=== PATIENT | male | born 1975 | race Caucasian/White ===

== ENCOUNTER 2020-10-13 08:44 | Outpatient (REF) | payer BC, SELFPAY | END 2020-10-13 08:45 | disposition home or self-care (01) | LOC: HO.HMGCLDS 08:44 | PROVIDERS: PCP Internal Medicine; Visit Provider Internal Medicine | DX: Z20.828 Contact with and (suspected) exposure to other viral communicable diseases (principal) | CPT/HCPCS: C9803; U0003 ==

== ENCOUNTER 2021-03-03 15:08 | Outpatient (REF) | payer BC, SELFPAY ==
--- NOTE | ~2021-03-03 | XR_ITS ---
EXAMINATION: XR HIP, LEFT CLINICAL INFORMATION: Pain COMPARISON: None TECHNIQUE: Two views of the left hip. FINDINGS: Bone alignment is normal. No fracture, dislocation or bone lesion is seen. The joint spaces are normal. There are surgical clips that project over the pelvis. Soft tissues are otherwise normal. XR/XR hip LT min 2V IMPRESSION: Normal left hip.
== END 2021-03-03 15:09 | disposition home or self-care (01) ==
LOC: HO.HMGCX 15:08
PROVIDERS: PCP Internal Medicine; Visit Provider Internal Medicine
DX: M25.552 Pain in left hip (principal)
CPT/HCPCS: 73502

== ENCOUNTER 2025-02-03 13:09 | Outpatient (AMB) | payer OTHER, SELFPAY ==
--- NOTE | 2025-02-03 13:13 | A.OFFPC_ITS ---
Vital Signs 02/03/25 13:14 Height 5 ft 8 in Weight 209 lb BMI 31.8 BP 160/92 H Blood Pressure Location Rt brachial Pulse 103 H Pulse Source Pulse Oximeter Temp 98.4 F Pulse Oximetry (%) 98 Intake Visit Reasons: follow up Intake Note: pain in left arm for about a year Allergies No Known Allergies Allergy (Verified 02/03/25 13:28) Medication List - Last Reconciled 02/03/25 by Aaliyah Soriano PA-C pantoprazole 40 mg PO DAILY Dental Screening Did you have a dental visit in the last 12 months?: Yes Did you have a dental problem in the last 6 months where you did not have access to dental care?: No Was dental information given to patient?: Yes FORMERLY [facility] Medical History (Updated 02/03/25 @ 13:46 by Aaliyah Soriano PA-C) Former smoker Alcohol dependency Class 1 obesity with body mass index (BMI) of 31.0 to 31.9 in adult Colon cancer screening Left shoulder pain Left elbow pain Hypertension Chronic low back pain Herniated lumbar disc without myelopathy Environmental allergies GERD (gastroesophageal reflux disease) Surgical History History of lumbosacral spine surgery Social History Housing: House Housing Other:: With Patient Tobacco Use Status: Former Tobacco user Tobacco use type: Cigarette Cigarette Packs Per Day: 0.5 Years Smoked: 20+ e-Cigarette/Vaping Use: Never Used Second Hand Smoke Exposure: Yes service: No Current occupational status: employed 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 1. Little interest or pleasure in doing things: not at all 2. Feeling down, depressed, or hopeless: not at all 3. Trouble falling or staying asleep, or sleeping too much: nearly every day 4. Feeling tired or having little energy: not at all 5. Poor appetite or overeating: several days 6. Feeling bad about yourself - or that you are a failure or have let yourself or your family down: not at all 7. Trouble concentrating on things, such as reading the newspaper or watching television: not at all 8. Moving or speaking so slowly that other people could have noticed. Or the opposite - being so fidgety or restless that you have been moving around a lot more than usual: not at all 9. Thoughts that you would be better off or of hurting yourself in some way: not at all Total score: 4 Depression Screening Interpretation: Negative Depression Screening Done: Yes 22666 - PHQ-9 Billing: Yes Source: Developed by Drs. Flaco Lang, Aleja Vivas, Farooq Edwards and colleagues, with an educational francisco from [employer]. Thrive Questionnaire Date Thrive assessed: 02/03/25 I am a: Patient What is your living situation today?: I have a steady place to live Within the past 12 months, did the food you bought not last and you didn't have the money to get more?: Never true Within the past 12 months, did you worry whether your food would run out before you got money to buy more?: Never true Do you have trouble paying for medicines?: No Do you have trouble getting transportation to medical appointments?: No Do you have trouble paying your heating and electricity bill?: No Do you have trouble taking care of your child, family member or friend?: No Do you have trouble with day-to-day activities such as bathing, preparing meals, shopping, managing finances, etc.?: No Are you currently unemployed and looking for a job?: No Are you interested in more education?: Yes THRIVE Score: 0 AUDIT C Alcohol Use Questionnaire (AUDIT-C) 1. How often do you have a drink containing alcohol?: 4 or more times a week 2. How many drinks containing alcohol do you have on a typical day when you are drinking?: 3 or 4 3. How often do you have six or more drinks on one occasion?: Monthly Total Score: 7 Score Reviewed/Action Taken: Yes (Reviewed pt not interested in stopping drinking at this time ) BELLE-7 AMB Questionnaire BELLE-7 Date BELLE - 7 assessed: 02/03/25 Feeling nervous, anxious, or on edge: 0 = Not at all Not being able to stop or control worryin = Not at all Worrying too much about different things: 0 = Not at all Trouble relaxin = Not at all Being so restless that it is hard to sit still: 0 = Not at all Becoming easily annoyed or irritable: 1 = Several days Feeling afraid as if something awful might happen: 0 = Not at all Total BELLE-7 score (0-4 normal; 5-9 mild; 10-14 moderate; 15-21 severe): 1 Source: Developed by Drs. Flaco Lang, Aleja Vivas, Farooq Edwards and colleagues, with an educational francisco from [employer]. BELLE-7 Assessment Billing BELLE-7 Assessment Tool: BELLE-7 Assessment 73911 Physical exam (Primary Care) Vital Signs: Last Vital Signs Temp 98.4 F 02/03/25 13:14 Pulse 103 H 02/03/25 13:14 BP 160/92 H 02/03/25 13:14 Pulse Ox 98 02/03/25 13:14 Care Plan Goal for BP management: <130/80 patient will be started on lisinopril 10 mg daily with instructions return in 1 month to assess affect BMI result Body Mass Index 31.8 BMI Assessment/Plan discussion: High BMI High, discussed plan: lifestyle, weight reduction, dietary, physical activity, alcohol moderation and other Tobacco/Smoking Status: Tobacco use Status Patient Tobacco Use Status Former Tobacco user 02/03/25 13:33 Tobacco use type Cigarette 02/03/25 13:33 e-Cigarette/Vaping Use Never Used 02/03/25 13:33 PHQ-9: PHQ-9 Score PHQ-9: Total score 4 02/03/25 13:33 Depression Screening Interpretation: Negative Thrive Assessment: Date of Thrive Assessment Date Thrive assessed 02/03/25 02/03/25 13:26 Coding Level of Care Code Est Pt Level 4 (90283) Complex EM visit Add On G2211 Diagnoses GERD (gastroesophageal reflux disease) K21.9 Environmental allergies Z91.09 Herniated lumbar disc without myelopathy M51.26 Chronic low back pain M54.50; G89.29 Hypertension I10 Left elbow pain M25.522 Left shoulder pain M25.512 Colon cancer screening Z12.11 Class 1 obesity with body mass index (BMI) of 31.0 to 31.9 in adult E66.811; Z68.31 Alcohol dependency F10.20 Former smoker Z87.891 Additional Codes BELLE-7 Assessment Billing - BELLE-7 Assessment Tool: BELLE-7 Assessment 08403 ([id number]) PHQ-9 - 83383 - PHQ-9 Billing: Yes ([id number]) Assessment & Plan Assessment & Plan (1) GERD (gastroesophageal reflux disease): Code(s): K21.9 - Gastro-esophageal reflux disease without esophagitis Category: Medical Plan: The patient uses pantoprazole for symptom management of GERD. Continuation and adjustment of therapy will depend on symptom tracking and future follow-up evaluations. (2) Environmental allergies: Code(s): Z91.09 - Other allergy status, other than to drugs and biological substances Category: Medical Plan: Condition is chronic and stable continue to monitor. (3) Herniated lumbar disc without myelopathy: Code(s): M51.26 - Other intervertebral disc displacement, lumbar region Category: Medical Plan: The continuation of conservative management advised. Further intervention contingent on symptom development and function impact over time. (4) Chronic low back pain: Code(s): M54.50 - Low back pain, unspecified; G89.29 - Other chronic pain Category: Medical Plan: The continuation of conservative management advised. Further intervention contingent on symptom development and function impact over time. (5) Hypertension: Code(s): I10 - Essential (primary) hypertension Category: Medical Plan: Initiated treatment with lisinopril 10 mg daily. The patient should monitor blood pressure and return in one month to review the management plan and medication responses. (6) Left elbow pain: Code(s): M25.522 - Pain in left elbow Category: Medical Plan: Proceed with diagnostic x-ray imaging of the affected shoulder and elbow. Await orthopedic consult to explore cause and appropriate interventions for pain relief. (7) Left shoulder pain: Code(s): M25.512 - Pain in left shoulder Category: Medical Plan: Proceed with diagnostic x-ray imaging of the affected shoulder and elbow. Await orthopedic consult to explore cause and appropriate interventions for pain relief. (8) Colon cancer screening: Code(s): Z12.11 - Encounter for screening for malignant neoplasm of colon Category: Medical Plan: Agreed to a Cologuard test as the initial screening step. Next steps will depend on test outcomes, with discussions on potential follow-up procedures required. (9) Class 1 obesity with body mass index (BMI) of 31.0 to 31.9 in adult: Code(s): E66.811 - Obesity, class 1; Z68.31 - Body mass index [BMI] 31.0-31.9, adult Category: Medical Plan: Suggested lifestyle changes aimed at weight reduction. Patient preferred self- directed dietary and exercise modifications over formal nutrition counseling. (10) Alcohol dependency: Code(s): F10.20 - Alcohol dependence, uncomplicated Category: Medical Plan: Educated on the impact of alcohol on hypertension and offered cessation support options. Decision deferred to patient's discretion. (11) Former smoker: Comment: Quit Code(s): Z87.891 - Personal history of nicotine dependence Category: Social Hx Plan: Complimented on cessation. No further interventions needed beyond maintaining smoke-free status. Referred to pasteurizer for lung cancer screening. Plan Plan Patient was informed and verbally consented to the use of an ambient scribe for clinic note documentation during this visit. 1. Alcohol Use, Daily Educated on the impact of alcohol on hypertension and offered cessation support options. Decision deferred to patient's discretion. 2. Herniated Disc With Chronic Back Pain The continuation of conservative management advised. Further intervention contingent on symptom development and function impact over time. 3. Arm Pain Proceed with diagnostic x-ray imaging of the affected shoulder and elbow. Await orthopedic consult to explore cause and appropriate interventions for pain relief. 4. Family History Of Cancer Agreed to a Cologuard test as the initial screening step. Next steps will depend on test outcomes, with discussions on potential follow-up procedures required. 5. Obesity Suggested lifestyle changes aimed at weight reduction. Patient preferred self- directed dietary and exercise modifications over formal nutrition counseling. 6. Essential Hypertension Initiated treatment with lisinopril 10 mg daily. The patient should monitor blood pressure and return in one month to review the management plan and medic ation responses. 7. Gastroesophageal Reflux Disease The patient uses pantoprazole for symptom management of GERD. Continuation and adjustment of therapy will depend on symptom tracking and future follow-up evaluations. 8. Personal history of nicotine dependence Complimented on cessation. No further interventions needed beyond maintaining smoke-free status. Will refer to pasteurizer for lung cancer screening. Discussion Notes During the visit, we addressed the multifaceted management of the patient's chronic conditions along with necessary screenings due to family history. Lisino pril was prescribed to manage hypertension, with detailed instructions on blood pressure monitoring and potential side effects, like cough, discussed. Due to significant family cancer history, especially prostate, the patient agreed to a Cologuard screening, understanding that a positive result would necessitate a colonoscopy. Lifestyle modifications were suggested to manage obesity, and although formal nutritional counseling was offered, the patient opted to pursue modifications independently. The potential correlation between alcohol intake and hypertension was highlighted, offering options for assistance when the patient chooses to alter consumption habits. An orthopedic referral was made to address the unresolved left arm pain, with x-rays as the initial exploratory step. Follow-ups were planned to reassess therapy effectiveness for hypertension and re-evaluate lifestyle changes. Orders: Orders C Reactive Protein Today Z00.00 - Encounter for general adult medical examination without abnormal findings Erythrocyte Sedimentation Rate Today Z00.00 - Encounter for general adult medical examination without abnormal findings Hemoglobin A1c Today Z00.00 - Encounter for general adult medical examination without abnormal findings Vitamin B12 and Folate Today Z00.00 - Encounter for general adult medical examination without abnormal findings PSA,Total (Free>4and<10) Today Z00.00 - Encounter for general adult medical examination without abnormal findings XR elbow LT min 3V Today M25.512 - Pain in left shoulder, M25.522 - Pain in left elbow Complete Blood Count Auto Diff Today Z00.00 - Encounter for general adult medical examination without abnormal findings Comprehensive [place]. Panel Fast Today Z00.00 - Encounter for general adult medical examination without abnormal findings Lipid Panel Today Z00.00 - Encounter for general adult medical examination wit hout abnormal findings Liver Panel Today Z00.00 - Encounter for general adult medical examination without abnormal findings Magnesium Today Z00.00 - Encounter for general adult medical examination without abnormal findings Vitamin D 25-OH Total Today Z00.00 - Encounter for general adult medical examination without abnormal findings XR shoulder LT min 2V Today M25.512 - Pain in left shoulder, M25.522 - Pain in left elbow Referrals Cologuard Test Z12.11 - Encounter for screening for malignant neoplasm of colon, Z12.12 - Encounter for screening for malignant neoplasm of rectum Orthopedics Referral M25.512 - Pain in left shoulder, M25.522 - Pain in left elbow Lung Cancer Screening Referral Z87.891 - Personal history of nicotine dependence Medications: New lisinopril 10 mg PO DAILY 30 tabs 0RF G89.29 - Other chronic pain, I10 - Essential (primary) hypertension, K21.9 - Gastro-esophageal reflux disease without esophagitis, M51.26 - Other intervertebral disc displacement, lumbar region, M54.50 - Low back pain, unspecified, Z91.09 - Other allergy status, other than to drugs and biological substances Patient Instructions: Patient Instructions - Begin taking lisinopril 10 mg every morning; monitor blood pressure two hours after taking your medication. - Record your blood pressure and bring results to your follow-up in one month. - Follow instructions for the Cologuard test, and be cautious about contamination that could affect results. - Engage in weight management through diet and exercise alterations. - Avoid habits that exacerbate back pain; report changes in symptoms. - Obtain x-rays and proceed to an orthopedic consultation. - Inform me of any persistent cough after starting hypertension medication. - Contact us if you need support in reducing alcohol consumption when ready. - Continue to abstain from smoking. Scribe Plan - Not visible on output: History of Present Illness The patient is a 49-year-old male presenting for a follow-up exam and to address ongoing management of his chronic conditions, including Gastroesophageal Reflux Disease, hypertension, and back pain due to a herniated disc. The patient has a past medical history of surgery on the lumbar spine, and he experiences persistent left arm pain with physical exertion. His familial history reveals significant cancer incidence, particularly on the maternal side, although specific cancer types are unknown. Additionally, the patient?s mother and brother had cardiovascular issues, leading to heightened vigilance in his care. Socially, the patient recently quit smoking in November 2022 after a period of 20 years of tobacco use. He continues to consume alcohol and links this habit to his elevated blood pressure. His body weight has increased to 205 pounds, prompting concerns over obesity. The patient is actively managing GERD symptoms with pantoprazole but acknowledges the need for regular checkups to monitor his conditions and family- linked risks. His motivation is to avoid heart-related complications similar to those which afflicted his family members. 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 - Housing: Lives in a townhouse. - Family Status: , no children. - Substance Use: Former smoker, quit in November 2022 after 20+ years. Consumes four alcoholic drinks per day. - Exercise: Not engaging in regular exercise, identifies a sedentary routine. - Nutrition/Weight Management: Overweight at 205 pounds, recognizes recent weight gain post-smoking cessation. - Occupational Hazards: Regularly lifts heavy objects as part of his job, potentially contributing to musculoskeletal discomfort. Review of Systems - General: Denies unintentional weight changes, reports feeling overweight. - Musculoskeletal: Reports left arm pain from elbow to shoulder, describes as burning sensation. - Cardiovascular: Denies history of high blood pressure symptoms like headaches or dizziness. - Respiratory: Denies smoking, recent upper respiratory symptoms or difficulty breathing. - Gastrointestinal: Denies changes in bowel habits, reports managed GERD symptoms. - Neurological: Denies numbness or weakness in limbs. Physical Exam Appearance: Alert. Oriented X3. No acute distress. Head: Normal external exam. Normocephalic. Atraumatic. Eyes: Pupils are equal, round, and reactive to light. Extraocular movements intact. Conjunctiva and sclera normal. Eyelids normal. Ears: External auditory canal normal. Tympanic membranes normal. Throat: Pharynx normal. Uvula midline. Moist mucous membranes. Neck: Normal inspection. Neck supple. Full range of motion. No adenopathy. Thyroid Normal. No meningeal signs. No neck mass noted. Cardiovascular: Normal heart rate and rhythm. Heart sound normal. No murmurs noted. Pulses normal throughout. Blood pressure is high. Respiratory: No respiratory distress. Painless inspiration. Breath sounds normal. No wheezes/rales/rhonchi noted. Chest nontender. No accessory muscle usage noted or decreased air movement noted. Abdomen: Soft and nontender. Bowel sounds normal in all 4 quadrants. No distention noted. No organomegaly noted. No visible injury noted. Back: No costovertebral angle tenderness. Full range of motion noted. Skin: Skin warm and dry. Normal skin color. Normal skin turgor. No rashes/lesions/lacerations noted. Extremities: No lower extremity edema. Pain in the left arm from the elbow to the shoulder, described as a burning sensation. Patient has good range of motion of the left shoulder, elbow, left hand and wrist joint. No joint effusions. No extremity edema. No signs of infection. There is normal range of motion. All other extremities exhibit normal range of motion nontender. Neuro: Oriented X 3. No motor deficit. No sensory deficit. Reflexes normal. Normal steady gait.
[2025-02-03 13:14] VITALS: BP 160/92; PULSE 103; TEMP 36.9; O2SAT 98; BMI 31.8
--- OUTSIDE RECORDS SUMMARY | 2025-02-03 14:49 | XMS_ITS ---
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 Name Role Phone Flaco Huerta DO Primary Care Provider Unavail Rajendra Noriega Unavailable [phone] REASON FOR VISIT medication Medications Medication SIG (Take, Route, Fr equency, Duration) Notes Start Date End Date Status LORazepam 0.5 MG 1 tablet at bedtime as needed Orally Once a day for 4 days 05/03/2024 Act jadon Encounters Encounter Location Date Provider Diagnosis Rajendra Alvarado MD [address] [place] [phone] 05/03/2024 Rajendra Alvarado Plan Of Treatment Medication Medication Name Sig Start Date Stop Date Notes LORazepam 0.5 MG 1 tablet at bedtime as needed Orally Once a day for 4 days 05/03/2024 Progress Notes * Jacob OQUENDODOB: [birth year] (48 yo M)Acc No.[id number]:05/03/2024 Patient:?Jacob Oquendo :1975???Age:48 Y???Sex:Male Address:[address] [place] [address] , [place], [address] * Refills? Start LORazepam Tablet, 0.5 MG, Orally, 4 Tablet, 1 tablet at bedtime as needed, Once a day, 4 days * true * Date:? Generated for Marcin worley/Carmella/eTransmitting on:?02/03/2025 02:49 PM EDT
--- OUTSIDE RECORDS SUMMARY | 2025-02-03 14:49 | XMS_ITS | Patient Health Record ---
Author Organization Rajendra Alvarado MD Address [address] [place] [phone] Care Team Providers Care Manager Paper Name Role Phone Bradley Flaco Primary Care Provider Unavail able Rajendra Alvarado Unavailable [phone] Reason For Referral No Information Medications Medication SIG (Take, Route, Fr equency, Duration) Notes Start Date End Date Status LORazepam 0.5 MG 1 tablet at bedtime as needed Orally Once a day for 4 days 05/03/2024 Act jadon Encounters Encounter Location Date Provider Diagnosis Rajendra Alvarado MD [address] [place] [address] [address] [place] [phone] 05/03/2024 Rajendra Alvarado Plan Of Treatment No Information Insurance Providers Payer Name Payer Address Payer Phone Subscriber Number Group Number Insured Name Patient Relationship to Insured Coverage Start Date Coverage End Date [employer] [address] [place], [place] [id number] Jacob Mccord i Self - patient is the insured
== END 2025-02-03 13:49 | disposition home or self-care (01) ==
LOC: HO.HMCSH 13:09
PROVIDERS: PCP Internal Medicine; Visit Provider Physician Assistant Medical
DX: K21.9 Gastro-esophageal reflux disease without esophagitis (principal); Z91.09 Other allergy status, other than to drugs and biological substances; M51.26 Other intervertebral disc displacement, lumbar region; M54.50 Low back pain, unspecified; G89.29 Other chronic pain; I10 Essential (primary) hypertension; M25.522 Pain in left elbow; M25.512 Pain in left shoulder; Z12.11 Encounter for screening for malignant neoplasm of colon; E66.811 Obesity, class 1; Z68.31 Body mass index [BMI] 31.0-31.9, adult; F10.20 Alcohol dependence, uncomplicated; Z87.891 Personal history of nicotine dependence

== ENCOUNTER → 2025-02-03 13:09 | Outpatient (BNVA) | payer OTHER, SELFPAY | PROVIDERS: PCP Internal Medicine; Visit Provider Physician Assistant Medical | DX: K21.9 Gastro-esophageal reflux disease without esophagitis (principal); M51.26 Other intervertebral disc displacement, lumbar region; M54.50 Low back pain, unspecified; G89.29 Other chronic pain; I10 Essential (primary) hypertension; M25.522 Pain in left elbow; M25.512 Pain in left shoulder; E66.811 Obesity, class 1; Z68.31 Body mass index [BMI] 31.0-31.9, adult; F10.20 Alcohol dependence, uncomplicated; Z87.891 Personal history of nicotine dependence; Z91.09 Other allergy status, other than to drugs and biological substances | CPT/HCPCS: 96127 ==

== ENCOUNTER 2025-03-05 14:15 | Outpatient (AMB) | payer OTHER, SELFPAY ==
[2025-03-05 14:20] VITALS: BP 132/89; PULSE 110; RESP 14; TEMP 36.6; O2SAT 98; BMI 31.2
--- NOTE | 2025-03-05 14:20 | MHC.PC.OV ---
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 Accompanied by: Self / Same As Patient Allergies No Known Allergies Allergy (Verified 03/05/25 15:09) Medication List - Last Reconciled 03/05/25 by Aaliyah Soriano PA-C lisinopril 20 mg PO DAILY lorazepam mg PO pantoprazole 40 mg PO DAILY Tobacco use date assessed: 03/05/25 Dental Screening Dental Screen Date: 03/05/25 Did you have a dental visit in the last 12 months?: No Did you have a dental problem in the last 6 months where you did not have access to dental care?: No Was dental information given to patient?: Patient has dentist HPI 1 month follow up HPI Details The patient is a 49-year-old male presenting with essential hypertension, weight management issues, and prediabetic status. He reported elevated home blood pressure readings of 150/89 mmHg and higher, especially at work, while clinical readings show reduction to 132/89 mmHg, suggesting potential stress factors at work. He has been on lisinopril 10 mg but may require adjustment. Despite dietary changes, including cutting carbs and fried foods, significant weight loss has not been achieved. His HbA1c was previously recorded at 5.8, indicating prediabetes but showing no current symptoms typical of diabetes. The patient denied associated symptoms of frequent thirst or urination. Known for his persistent elevated heart rate, averaging 110 beats per minute, potentially linked to his weight status or stress factors. 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 - Job Satisfaction: Reports satisfaction and feels treated like family by his employers. - Lifestyle: Engages in limited physical activity and has recently attempted dietary changes for weight management. - Current Nutrition: Primarily consumes water and decaf tea; has reduced intake of sugary drinks. [facility] Medical History (Updated 03/05/25 @ 15:12 by Aaliyah Soriano PA-C) Tachycardia Prediabetes Former smoker Alcohol dependency Class 1 obesity with body mass index (BMI) of 31.0 to 31.9 in adult Colon cancer screening Left shoulder pain Left elbow pain Hypertension Chronic low back pain Herniated lumbar disc without myelopathy Environmental allergies GERD (gastroesophageal reflux disease) Surgical History History of lumbosacral spine surgery Family History Father No problems noted. Mother No problems noted. 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 1. Little interest or pleasure in doing things: not at all 2. Feeling down, depressed, or hopeless: not at all 3. Trouble falling or staying asleep, or sleeping too much: not at all 4. Feeling tired or having little energy: not at all 5. Poor appetite or overeating: not at all 6. Feeling bad about yourself - or that you are a failure or have let yourself or your family down: not at all 7. Trouble concentrating on things, such as reading the newspaper or watching television: not at all 8. Moving or speaking so slowly that other people could have noticed. Or the opposite - being so fidgety or restless that you have been moving around a lot more than usual: not at all 9. Thoughts that you would be better off or of hurting yourself in some way: not at all Total score: 0 Depression Screening Interpretation: Negative Depression Screening Done: Yes 16974 - PHQ-9 Billing: Yes Source: Developed by Drs. Flaco Lang, Aleja Vivas, Farooq Edwards and colleagues, with an educational francisco from [employer]. Thrive Questionnaire Date Thrive assessed: 02/03/25 I am a: Patient What is your living situation today?: I have a steady place to live Within the past 12 months, did the food you bought not last and you didn't have the money to get more?: Never true Within the past 12 months, did you worry whether your food would run out before you got money to buy more?: Never true Do you have trouble paying for medicines?: No Do you have trouble getting transportation to medical appointments?: No Do you have trouble paying your heating and electricity bill?: No Do you have trouble taking care of your child, family member or friend?: No Do you have trouble with day-to-day activities such as bathing, preparing meals, shopping, managing finances, etc.?: No Are you currently unemployed and looking for a job?: No Are you interested in more education?: Yes THRIVE Score: 0 AUDIT C Alcohol Use Questionnaire (AUDIT-C) 1. How often do you have a drink containing alcohol?: 2-3 times a week 2. How many drinks containing alcohol do you have on a typical day when you are drinking?: 1 or 2 3. How often do you have six or more drinks on one occasion?: Never Total Score: 3 Score Reviewed/Action Taken: Yes (Reviewed pt not interested in stopping drinking at this time ) BELLE-7 AMB Questionnaire BELLE-7 Date BELLE - 7 assessed: 02/03/25 Feeling nervous, anxious, or on edge: 0 = Not at all Not being able to stop or control worryin = Not at all Worrying too much about different things: 0 = Not at all Trouble relaxin = Not at all Being so restless that it is hard to sit still: 0 = Not at all Becoming easily annoyed or irritable: 1 = Several days Feeling afraid as if something awful might happen: 0 = Not at all Total BELLE-7 score (0-4 normal; 5-9 mild; 10-14 moderate; 15-21 severe): 1 Source: Developed by Drs. Flaco Lang, Aleja Vivas, Farooq Edwards and colleagues, with an educational francisco from [employer]. BELLE-7 Assessment Billing BELLE-7 Assessment Tool: BELLE-7 Assessment 65218 Review of Systems Const Details: - Cardiovascular: Reports consistent elevated heart rate, typically around 110 bpm. - Endocrine: Denies excessive thirst and frequent urination. Physical exam (Primary Care) Vital Signs: Last Vital Signs Temp 97.8 F 03/05/25 14:20 Pulse 110 H 03/05/25 14:20 Resp 14 03/05/25 14:20 BP 132/89 03/05/25 14:20 Pulse Ox 98 03/05/25 14:20 Oxygen Delivery Method Room Air 03/05/25 14:20 Care Plan Goal for BP management: <130/90 Naprosyn will be increased from 10 mg to 20 mg daily. Patient to keep a blood pressure diary and return in 1 month. BMI result Body Mass Index 31.2 BMI Assessment/Plan discussion: High BMI High, discussed plan: lifestyle, weight reduction, dietary, physical activity and alcohol moderation Tobacco/Smoking Status: Tobacco use Status Tobacco use date assessed 03/05/25 03/05/25 14:30 Patient Tobacco Use Status Former Tobacco user 03/05/25 14:30 Tobacco use type Cigarette 03/05/25 14:30 e-Cigarette/Vaping Use 03/05/25 14:30 PHQ-9: PHQ-9 Score PHQ-9: Total score 0 03/05/25 14:30 Depression Screening Interpretation: Negative Thrive Assessment: Date of Thrive Assessment Date Thrive assessed 02/03/25 03/05/25 14:30 Const Other: Appearance: Alert. Oriented X3. No acute distress. Head: Normal external exam. Normocephalic. Atraumatic. Eyes: Pupils are equal, round, and reactive to light. Extraocular movements intact. Conjunctiva and sclera normal. Eyelids normal. Ears: External auditory canal normal. Tympanic membranes normal. Throat: Pharynx normal. Uvula midline. Moist mucous membranes. Neck: Normal inspection. Neck supple. Full range of motion. No adenopathy. Thyroid Normal. No meningeal signs. No neck mass noted. Cardiovascular: Heart rate is slightly elevated, consistently noted to be around 110-103 bpm. Heart sound normal. No murmurs noted. Pulses normal throughout. Respiratory: No respiratory distress. Painless inspiration. Breath sounds normal. No wheezes/rales/rhonchi noted. Chest nontender. No accessory muscle usage noted or decreased air movement noted. Abdomen: Soft and nontender. Bowel sounds normal in all 4 quadrants. No distention noted. No organomegaly noted. No visible injury noted. Back: No costovertebral angle tenderness. Full range of motion noted. Skin: Skin warm and dry. Normal skin color. Normal skin turgor. No rashes/lesions/lacerations noted. Extremities: No lower extremity edema. Extremities exhibit normal range of motion. Extremities nontender. Neuro: Oriented X 3. No motor deficit. No sensory deficit. Reflexes normal. Results Reviewed Results Reviewed: - Labs: - HbA1c: 5.8 % (Indicating prediabetes) Coding Level of Care Code Est Pt Level 3 (05128) Complex EM visit Add On G2211 Diagnoses Hypertension I10 Class 1 obesity with body mass index (BMI) of 31.0 to 31.9 in adult E66.811; Z68.31 Prediabetes R73.03 Tachycardia R00.0 Additional Codes BELLE-7 Assessment Billing - BELLE-7 Assessment Tool: BELLE-7 Assessment 81433 ([id number]) PHQ-9 - 46837 - PHQ-9 Billing: Yes ([id number]) Assessment & Plan Assessment & Plan (1) Hypertension: Code(s): I10 - Essential (primary) hypertension Category: Medical Plan: Increment in lisinopril to 20 mg for improved blood pressure control targeting below 130/90 mmHg. Monitor bi-daily, especially under work conditions. Condition is chronic and stable continue to monitor. (2) Class 1 obesity with body mass index (BMI) of 31.0 to 31.9 in adult: Code(s): E66.811 - Obesity, class 1; Z68.31 - Body mass index [BMI] 31.0-31.9, adult Category: Medical Plan: Continuing dietary adjustments with increased physical activity. Metformin considered but not initiated at this time. Condition is chronic and stable continue to monitor. (3) Prediabetes: Code(s): R73.03 - Prediabetes Category: Medical Plan: Emphasize lifestyle modifications with no immediate need for medication. Condition is chronic and stable continue to monitor. (4) Tachycardia: Code(s): R00.0 - Tachycardia, unspecified Category: Medical Plan: Monitor heart rate fluctuations linked to weight status and work-induced stress. Condition is chronic and stable not AFib will continue to monitor. Plan Plan Patient was informed and verbally consented to the use of an ambient scribe for clinic note documentation during this visit. 1. Essential Hypertension Increment in lisinopril to 20 mg for improved blood pressure control targeting below 130/90 mmHg. Monitor bi-daily, especially under work conditions. 2. Overweight Continuing dietary adjustments with increased physical activity. Metformin considered but not initiated at this time. 3. Tachycardia Monitor heart rate fluctuations linked to weight status and work-induced stress. 4. Prediabetes Emphasize lifestyle modifications with no immediate need for medication. Today, I discussed with the patient his hypertension management, proposing an increase in lisinopril dosage to 20 mg. We discussed the significance of consistent home and work measures, especially how stress might play a role in his readings. I emphasized the importance of his continued effort with dietary changes and physical activity, advising an increase in exercise to aid both weight management and blood pressure control. In terms of prediabetes, the serum HbA1c indicates a prediabetic status, and I emphasized ongoing lifestyle changes to prevent disease progression. Medication for weight management, such as metformin, was discussed but deferred. Consent was implied for medication adjustments, and I recommended regular follow-ups. SLs for lung cancer screenings were addressed, ensuring contact information was updated for proper referral and assessment procedures. Medications: Changed From lisinopril 10 mg PO DAILY 30 tabs 0RF G89.29 - Other chronic pain, I10 - Essential (primary) hypertension, K21.9 - Gastro-esophageal reflux disease without esophagitis, M51.26 - Other intervertebral disc displacement, lumbar region, M54.50 - Low back pain, unspecified, Z91.09 - Other allergy status, other than to drugs and biological substances To lisinopril 20 mg PO DAILY 90 tabs 1RF G89.29 - Other chronic pain, I10 - Essential (primary) hypertension, K21.9 - Gastro-esophageal reflux disease without esophagitis, M51.26 - Other intervertebral disc displacement, lumbar region, M54.50 - Low back pain, unspecified, Z91.09 - Other allergy status, other than to drugs and biological substances Patient Instructions: - Increase lisinopril dosage to 20 mg daily. - Monitor blood pressure at home, especially after work. - Continue your current dietary plan and integrate at least 30 minutes of exercise daily. - Watch for symptoms such as fast heart rates and report if they persist. - Schedule blood work and screenings as directed. - Follow up in one month to reassess blood pressure and weight management progress. - Seek medical attention if blood pressure is consistently over 160/100 mmHg or any new symptoms arise.
== END 2025-03-05 15:08 | disposition home or self-care (01) ==
PROVIDERS: PCP Internal Medicine; Visit Provider Physician Assistant Medical
DX: I10 Essential (primary) hypertension (principal); E66.811 Obesity, class 1; Z68.31 Body mass index [BMI] 31.0-31.9, adult; R73.03 Prediabetes; R00.0 Tachycardia, unspecified; Z13.9 Encounter for screening, unspecified

== ENCOUNTER → 2025-03-05 14:15 | Outpatient (BNVA) | payer OTHER, SELFPAY | PROVIDERS: PCP Internal Medicine; Visit Provider Physician Assistant Medical | DX: I10 Essential (primary) hypertension (principal); E66.811 Obesity, class 1; Z68.31 Body mass index [BMI] 31.0-31.9, adult; R73.03 Prediabetes; R00.0 Tachycardia, unspecified | CPT/HCPCS: 83036; 96127 ==

== ENCOUNTER 2025-03-14 09:31 | Outpatient (REF) | payer OTHER, SELFPAY ==
--- NOTE | ~2025-03-14 | XR_ITS ---
CLINICAL HISTORY: M25.522 - Pain in left elbow 3 view left elbow Comparison: None Findings: Bones intact. No dislocations. Degenerative osteophytes of the elbow joint. There is enthesophytes of the posterior elbow. No joint effusion. No radiopaque foreign body. IMPRESSION: 1. No acute findings This document has been electronically signed by: Arnold Velazquez MD on 03/16/2025 21:26:31
--- NOTE | ~2025-03-14 | XR_ITS ---
CLINICAL HISTORY: M25.512 - Pain in left shoulder 4 view left shoulder Comparison: None Findings: No fractures or dislocations. Moderate degenerative change of the AC joint. No erosions. No radiopaque foreign body. IMPRESSION: 1. No acute findings This document has been electronically signed by: Arnold Velazquez MD on 03/16/2025 21:22:12
[2025-03-14 13:13] LABS: MANUAL DIFF FLAG NO
[2025-03-14 13:22] LABS: Basophils Percent Auto 0.6 % (0-2); Eosinophils Absolute Auto 0.1 X10*3/uL (0.0-0.4); Eosinophils Percent Auto 2.1 % (0-4); Hematocrit 40.1 % (42.0-52.0); Hemoglobin 13.9 g/dl (14.0-18.0); Imm Gran Abs Auto 0.02 X10*3/uL (0.00-0.03); Imm Gran Pct Auto 0.3 % (0.0-0.4); Lymphocytes Absolute Auto 2.1 X10*3/uL (1.2-4.9); Lymphocytes Percent Auto 30.5 % (20-40); Mean Corpuscular HGB Conc 34.7 g/dl (31.0-36.0); Mean Corpuscular Hemoglobin 30.8 pg (27.0-33.0); Mean Corpuscular Volume 88.9 fL (80.0-98.0); Mean Platelet Volume 9.7 fL (9.4-12.4); Monocytes Absolute Auto 0.9 X10*3/uL (0.1-1.2); Monocytes Percent Auto 13.7 % (2-11); Neutrophils Absolute Auto 3.6 x10*3/uL (2.0-8.3); Neutrophils Percent Auto 52.8 % (45-73); Platelet Count 321 X10*3/uL (160-400); Red Blood Count 4.51 X10*6/uL (4.60-5.80); Red Cell Distribution Width 12.5 % (11.0-16.0); White Blood Count 6.8 X10*3/uL (4.8-10.8)
[2025-03-14 13:59] LABS: Alanine Aminotransferase 41 U/L (0-40); Albumin Level 4.9 g/dL (3.5-5.0); Alkaline Phosphatase 79 U/L (39-117); Anion Gap 14 (12-20); Aspartate Amino Transferase 37 U/L (5-37); Bilirubin Direct 0.2 mg/dL (0.0-0.5); Bilirubin Total 0.6 mg/dL (0.0-1.0); Blood Urea Nitrogen 27 mg/dL (9-16); C Reactive Protein 0.41 mg/dL (< or = 0.50); Calcium 10.1 mg/dL (8.4-10.2); Carbon Dioxide 22 mmol/L (22-29); Chloride 104 mmol/L (96-108); Cholesterol 225 mg/dL (<200); Estimated Glomerular Filt Rate > 60; Glucose Fasting 116 mg/dL (60-99); HDL Cholesterol 70 mg/dL (>40); LDL Cholesterol Calculated 144 mg/dL (<100); Magnesium 1.7 mg/dL (1.6-2.6); Potassium 5.1 mmol/L (3.3-5.1); Sodium 135 mmol/L (135-145); Total Protein 8.1 g/dL (6.5-8.0); Triglycerides 56 mg/dL (<150)
[2025-03-14 14:04] LABS: PSA,Total (Free>4and<10) 0.86 ng/mL (0.00-4.00)
[2025-03-14 14:18] LABS: Erythrocyte Sedimentation Rate 13 MM/HR (0-15)
[2025-03-14 14:22] LABS: Vitamin B12 261 pg/mL (200-900)
[2025-03-14 14:24] LABS: Vitamin D 25-OH Total 22.2 ng/mL (>30)
[2025-03-14 14:35] LABS: Estimated Average Glucose 117 mg/dL; Hemoglobin A1c % 5.7 % (<6.0); Total Hemoglobin (HGBA1C) 3662.7969 umol/L
== END 2025-03-14 09:32 | disposition home or self-care (01) ==
LOC: HO.HMGCX 09:31
PROVIDERS: PCP Internal Medicine; Visit Provider Physician Assistant Medical
DX: M25.522 Pain in left elbow (principal); M25.512 Pain in left shoulder; Z12.5 Encounter for screening for malignant neoplasm of prostate; Z13.1 Encounter for screening for diabetes mellitus; Z13.6 Encounter for screening for cardiovascular disorders; Z00.00 Encounter for general adult medical examination without abnormal findings
CPT/HCPCS: 36415; 73030; 73080; 80053; 80061; 80076; 82248; 82306; 82607; 82746; 83036; 83735; 84153; 85025; 85652; 86140

== ENCOUNTER → 2025-03-14 09:36 | Outpatient (BNV) | payer OTHER, SELFPAY | PROVIDERS: PCP Internal Medicine; Visit Provider Nuclear Medicine | DX: M25.512 Pain in left shoulder (principal); M25.522 Pain in left elbow | CPT/HCPCS: 73030; 73080 ==